=== PATIENT | male | born 1990 | race Caucasian/White ===

== ENCOUNTER 2017-10-18 20:45 | Emergency (ER) | payer BC ==
[~2017-10-18] VITALS: Ht 182.9 cm; Wt 100.4 kg
[2017-10-18 21:40] LABS: ALBUMIN 4.7 g/dL (3.2-4.8)
[2017-10-18 21:41] LABS: CHLORIDE 105 mEq/L (99-109); SODIUM 139 mEq/L (136-147)
[2017-10-18 21:43] LABS: GLUCOSE 89 mg/dL (70-99); TOTAL PROTEIN 9.1 g/dL (6.4-8.3)
[2017-10-18 21:43] LABS: APPEARANCE CLEAR ((CLEAR)); BILIRUBIN NEGATIVE; BLOOD NEGATIVE; COLOR YELLOW ((YELLOW)); GLUCOSE (STRIP) NEGATIVE; KETONES NEGATIVE; LEUKOCYTES NEGATIVE; NITRITE NEGATIVE; PROTEIN (STRIP) NEGATIVE; UCUL ADDED? NO; UROBILINOGEN 0.2 MG/DL (0.2-1.0)
[2017-10-18 21:45] LABS: TOTAL BILIRUBIN 0.4 mg/dL (0.0-1.0)
[2017-10-18 21:46] LABS: ALKALINE PHOSPHATASE 50 IU/L (3-129)
[2017-10-18 21:47] LABS: GFR ESTIMATE (CALCULATED) > 59 mL/min/ (58.99-99999)
[2017-10-18 21:48] LABS: AST (GOT) 35 IU/L (2-34); UREA NITROGEN (BUN) 16 mg/dL (9-23)
[2017-10-18 21:49] LABS: ALT (GPT) 32 IU/L (3-49)
[2017-10-18 21:50] LABS: LIPASE 8 U/L (1.0-51.0)
[2017-10-18 21:54] LABS: HEMATOCRIT 47.6 % (38.0-50.0); HEMOGLOBIN 16.5 G/DL (12.5-16.6); MCH 31.7 PG (29.0-34.0); MCHC 34.7 G/DL (30.0-36.0); MCV 91.5 FL (86-99); PLATELET COUNT 368 K/uL (156-360); RBC DIS.WIDTH-CV 12.8 % (11.8-14.6); RBC DIS.WIDTH-SD 42.9 % (39-53); WHITE BLOOD COUNT 10.3 K/uL (4.1-10.2)
[2017-10-19] MEDS ORDERED: REGLAN10 MG PO (00:48)
[2017-10-19 00:51] VITALS: BP 115/78
== END 2017-10-19 01:17 | disposition home or self-care (01) ==
LOC: EME 20:45
PROVIDERS: Nurse Practitioner Family
DX: R10.13 Epigastric pain (principal); K52.9 Noninfective gastroenteritis and colitis, unspecified; K57.30 Diverticulosis of large intestine without perforation or abscess without bleeding; N28.1 Cyst of kidney, acquired; F17.200 Nicotine dependence, unspecified, uncomplicated
CPT/HCPCS: 74177; 76705; 80053; 81003; 83690; 85027; 99281; 99284; J7030